=== PATIENT | male | born 1960 | race Caucasian/White ===

== ENCOUNTER 2017-12-24 07:25 | Emergency (ER) | payer SELFPAY ==
--- NOTE | 2017-12-24 08:14 | EDM.PDOC ---
ED HPI GENERAL MEDICAL PROBLEM - General Chief Complaint: Lower Extremity Injury/Pain Stated Complaint: LEFT KNEE IS SWOLLEN Time Seen by Provider: 12/24/17 08:14 Source of Information: Reports: Patient - History of Present Illness INITIAL COMMENTS - FREE TEXT/NARRATIVE: HISTORY AND PHYSICAL: History of present illness: [Patient presents with left knee swelling and some discomfort he rates 5 out of 10 nonradiating no redness warmth mild swelling no ballooning of the patella no fever nausea vomiting chills sweats Patient was concerned as his work mates have had MRSA history and he now has knee pain and mild swelling no redness warmth or open lesion no injury or trauma no fever nausea vomiting chills sweats ] Review of systems: As per history of present illness and below otherwise all systems reviewed and negative. Past medical history: As per history of present illness and as reviewed below otherwise noncontributory. Surgical history: As per history of present illness and as reviewed below otherwise noncontributory. Social history: No reported history of drug or alcohol abuse. Family history: As per history of present illness and as reviewed below otherwise noncontributory. Physical exam: HEENT: Atraumatic, normocephalic, pupils reactive, negative for conjunctival pallor or scleral icterus, mucous membranes moist, throat clear, neck supple, nontender, trachea midline. Lungs: Clear to auscultation, breath sounds equal bilaterally, chest nontender. Heart: S1S2, regular, negative for clicks, rubs, or JVD. Abdomen: Soft, nondistended, nontender. Negative for masses or hepatosplenomegaly. Negative for costovertebral tenderness. Pelvis: Stable nontender. Genitourinary: Deferred. Rectal: Deferred. Extremities: Atraumatic, negative for cords or calf pain. Neurovascular unremarkable. Neuro: Awake, alert, oriented. Cranial nerves II through XII unremarkable. Cerebellum unremarkable. Motor and sensory unremarkable throughout. Exam nonfocal. Diagnostics: [CBC, uric acid Left knee x-ray ] Therapeutics: [Toradol] extreme milligrams IM Indomethacin Gout diet Follow-up with primary care In [place] on return home Impression: Acute gout Definitive disposition and diagnosis as appropriate pending reevaluation and review of above. - Related Data Allergies Allergy/AdvReac Type Severity Reaction Status Date / Time No Known Allergies Allergy Verified 12/24/17 08:06 Home Meds: Home Meds . [No Known Home Meds] 12/24/17 [History] Review of Systems - Review of Systems Review Of Systems: See Below ED EXAM, GENERAL - Physical Exam Exam: See Below Course - Vital Signs Last Recorded V/S: Last Vital Signs Temp 97.4 F 12/24/17 08:01 Pulse 75 12/24/17 08:01 Resp 18 12/24/17 08:01 BP 135/71 12/24/17 08:01 Pulse Ox 96 12/24/17 08:01 - Orders/Labs/Meds Orders: Active Orders 24 hr Category Date Time Status Knee 3V Lt [CR] Stat Exams 12/24/17 07:27 Taken Labs: Laboratory Tests 12/24/17 12/24/17 Range/Units 07:47 07:47 WBC 7.00 (4.0-11.0) K/uL RBC 4.72 (4.50-5.90) M/uL Hgb 14.9 (13.0-17.0) g/dL Hct 43.8 (38.0-50.0) % MCV 92.8 (80.0-98.0) fL MCH 31.6 (27.0-32.0) pg MCHC 34.0 (31.0-37.0) g/dL RDW Std Deviation 46.6 (28.0-62.0) fl RDW Coeff of [place] 14 (11.0-15.0) % Plt Count 226 (150-400) K/uL MPV 9.80 (7.40-12.00) fL Neut % (Auto) 60.0 (48.0-80.0) % Lymph % (Auto) 28.7 (16.0-40.0) % [place] % (Auto) 8.1 (0.0-15.0) % Eos % (Auto) 2.9 (0.0-7.0) % Baso % (Auto) 0.3 (0.0-1.5) % Neut # (Auto) 4.2 (1.4-5.7) K/uL Lymph # (Auto) 2.0 (0.6-2.4) K/uL [place] # (Auto) 0.6 (0.0-0.8) K/uL Eos # (Auto) 0.2 (0.0-0.7) K/uL Baso # (Auto) 0.0 (0.0-0.1) K/uL Nucleated RBC % 0.0 /100WBC Nucleated RBCs # 0 K/uL Uric Acid 8.9 H (2.6-7.2) mg/dL Departure - Departure Time of Disposition: 08:43 Disposition: Home, Self-Care 01 Condition: Good Clinical Impression: Acute gout - Discharge Information Referrals: PCP,None [Primary Care Provider] - Forms: ED Department Discharge Additional Instructions: The following information is given to patients seen in the emergency department who are being discharged to home. This information is to outline your options for follow-up care. We provide all patients seen in our emergency department with a follow-up referral. The need for follow-up, as well as the timing and circumstances, are variable depending upon the specifics of your emergency department visit. If you don't have a primary care physician on staff, we will provide you with a referral. We always advise you to contact your personal physician following an emergency department visit to inform them of the circumstance of the visit and for follow-up with them and/or the need for any referrals to a consulting specialist. The emergency department will also refer you to a specialist when appropriate. This referral assures that you have the opportunity for follow-up care with a specialist. All of these measure are taken in an effort to provide you with optimal care, which includes your follow-up. Under all circumstances we always encourage you to contact your private physician who remains a resource for coordinating your care. When calling for follow-up care, please make the office aware that this follow-up is from your recent emergency room visit. If for any reason you are refused follow-up, please contact the [facility] emergency department at and asked to speak to the emergency department charge nurse. - My Orders Last 24 Hours: My Active Orders 12/24/17 07:27 Knee 3V Lt [CR] Stat - Assessment/Plan Last 24 Hours: My Active Orders 12/24/17 07:27 Knee 3V Lt [CR] Stat
[2017-12-24] MEDS ORDERED: Ketorolac 60 MG/2 ML SDV IM ONE (08:44)
--- NOTE | 2017-12-25 13:40 | CR ---
EXAM DATE: 12/24/17 PATIENT'S AGE: 57 Patient: ASHWINI CARREON Facility: [place], [place] Site . Site : [id number] Study: XRay Knee Left [id number]/22/2018 8:25:05 AM Ordering Physician: Doctor Carias Final Report: INDICATION: pain for 4 days/ no injury FINDINGS: Three views of the left knee show no evidence of acute fracture or dislocation. No other bony or soft tissue abnormalities identified. Dictated by Vladimir Morton MD @ 12/24/2017 8:36:47 AM Dictated by: Vladimir Morton MD @ 12/24/2017 08:36:54 (Electronic Signature) Report Signed by Proxy. IJM
== END 2017-12-24 09:17 | disposition home or self-care (01) ==
LOC: MW.ED 07:25
DX: M10.9 Gout, unspecified (principal)
CPT/HCPCS: 36415; 73562; 84550; 85025; 96372; 99283; J1885